=== PATIENT | male | born 1990 | race Caucasian/White ===

== ENCOUNTER 2018-02-03 17:11 | Emergency (ER) | payer OTHER ==
[~2018-02-03] VITALS: Ht 182.9 cm; Wt 56.8 kg
[2018-02-03 17:25] VITALS: BP 111/72
== END 2018-02-03 18:52 | disposition home or self-care (01) ==
LOC: ED 17:11
DX: S67.195A Crushing injury of left ring finger, initial encounter (principal); S61.215A Laceration without foreign body of left ring finger without damage to nail, initial encounter; Y93.89 Activity, other specified; Y99.8 Other external cause status; W31.89XA Contact with other specified machinery, initial encounter; Y92.89 Other specified places as the place of occurrence of the external cause